=== PATIENT | female | born 1995 | race Caucasian/White ===

== ENCOUNTER → 2017-02-05 | Outpatient (CLI) | payer OTHER | LOC: COL.RAD 01-31 14:00 | DX: M25.572 Pain in left ankle and joints of left foot (principal); M76.72 Peroneal tendinitis, left leg; M76.822 Posterior tibial tendinitis, left leg; R22.42 Localized swelling, mass and lump, left lower limb ==

== ENCOUNTER 2018-02-08 23:41 | Emergency (ER) | payer OTHER ==
[~2018-02-08] VITALS: Ht 162.6 cm; Wt 86.4 kg
[2018-02-08] MEDS ORDERED: ADDERALL10 MG PO (23:54)
[2018-02-08] MEDS ORDERED: ALLEGRA 180MG180 MG PO (23:55)
[2018-02-08] MEDS ORDERED: MULTIPLE VITAMI1 CAP PO (23:55)
[2018-02-08] MEDS ORDERED: ZANTAC 150150 MG (23:55)
[2018-02-08] MEDS ORDERED: CALCIUM CARBON650 M2 (23:56)
[2018-02-08] MEDS ORDERED: SINGULAIR 110 MG/TAB PO (23:56)
[2018-02-08] MEDS ORDERED: OMEGA-3 1000 MG1 CAP PO (23:56)
[2018-02-08] MEDS ORDERED: PROAIR HFA0.09 MG/AC IH (23:57)
[2018-02-08] MEDS ORDERED: ZYRTEC 10MG10 MG PO (23:57)
[2018-02-08] MEDS ORDERED: MIRENA52 MG IY (23:58)
[2018-02-08] MEDS ORDERED: QVAR0.04 MG/AC IH (23:58)
[2018-02-09 01:00] LABS: BASO % 0.3 % (0.0-2.0); GRAN # 6.7 (1.4-6.5); GRAN % 71.9 % (42.2-75.2); HEMOGLOBIN 11.9 g/dl (12.5-16.0); LYMPH # 1.6 (1.2-3.4); LYMPH % 17.2 % (20.0-51.0); MEAN CELL VOLUME 85 fl (80.0-100.0); MEAN CORPUSCULAR HEMOGLOBIN 28 pg (27.0-31.0); MEAN CORPUSCULAR HGB CONC 33 g/dl (33.0-37.0); MEAN PLATELET VOLUME 10.2 fl (7.4-10.4); MONO # 0.9 (0.1-0.6); MONO % 9.6 % (1.7-9.3); PLATELET COUNT 207 K/mm3 (130-400); RED BLOOD COUNT 4.24 M/mm3 (4.10-5.30); REDCELL DISTRIBUTION WIDTH-CV 13.3 % (11.5-14.5)
[2018-02-09 01:08] LABS: ALBUMIN 3.5 gm/dL (3.5-5.0); BILIRUBIN,TOTAL 0.4 mg/dL (0.0-1.0); C-REACTIVE PROTEIN 8.5 mg/dL (0.0-0.9); CALCIUM 8.3 mg/dL (8.4-10.2); CREATININE, serum 0.69 mg/dL (0.52-1.25); POTASSIUM 3.5 mmol/L (3.4-5.0); TOTAL PROTEIN 7.1 gm/dL (6.4-8.2)
[2018-02-09 01:19] VITALS: TEMP 99.5
[2018-02-09 01:35] LABS: COLLECTION METHOD CLEAN CATCH
[2018-02-09 01:52] LABS: PH 6 (5-8); SQUAMOUS EPITHELIAL 0-2 /hpf; URINE APPEARANCE Clear; URINE BACTERIA Moderate /hpf; URINE BILIRUBIN Negative (NEGATIVE); URINE BLOOD 1+ (NEGATIVE); URINE COLOR Yellow; URINE GLUCOSE Negative (NEGATIVE); URINE KETONE 1+ (NEGATIVE); URINE LEUKOCYTE ESTERASE Negative (NEGATIVE); URINE NITRATE Positive (NEGATIVE); URINE PROTEIN(semi-quant) Negative (NEGATIVE); URINE RBC 0-2 /hpf
[2018-02-09] MEDS ORDERED: VALTREX1 GM PO (02:07)
[2018-02-09] MEDS ORDERED: CEFTIN500 MG PO (02:07)
[2018-02-09 02:56] VITALS: BP 130/75; PULSE 103
[2018-02-09] MEDS ORDERED: NORCO 325 MG-51 TAB PO (20:17)
== END 2018-02-09 02:56 | disposition home or self-care (01) ==
LOC: COL.ER 23:41
PROVIDERS: Emergency Medicine
DX: N39.0 Urinary tract infection, site not specified (principal); B00.9 Herpesviral infection, unspecified; J45.909 Unspecified asthma, uncomplicated; F98.8 Other specified behavioral and emotional disorders with onset usually occurring in childhood and adolescence; K21.9 Gastro-esophageal reflux disease without esophagitis
CPT/HCPCS: J0696; J1885; J2405; J7030

== ENCOUNTER 2018-02-09 19:34 | Emergency (ER) | payer OTHER ==
[~2018-02-09 19:34] MED LIST: ADDERALL10 MG PO; ALLEGRA 180MG180 MG PO; CALCIUM CARBON650 M2; CEFTIN500 MG PO; MIRENA52 MG IY; MULTIPLE VITAMI1 CAP PO; OMEGA-3 1000 MG1 CAP PO; PROAIR HFA0.09 MG/AC IH; QVAR0.04 MG/AC IH; SINGULAIR 110 MG/TAB PO; VALTREX1 GM PO; ZANTAC 150150 MG; ZYRTEC 10MG10 MG PO
[2018-02-09 19:37] VITALS: TEMP 98.6
[2018-02-09] MEDS ORDERED: NORCO 325 MG-51 TAB PO (20:17)
[2018-02-09 20:33] VITALS: BP 125/72; PULSE 112
== END 2018-02-09 20:45 | disposition home or self-care (01) ==
LOC: COL.ER 19:34
DX: R10.2 Pelvic and perineal pain (principal); Z79.51 Long term (current) use of inhaled steroids

== ENCOUNTER → 2019-12-20 | Outpatient (CLI) | payer BC ==
[~2019-12-20] MED LIST changes: +NORCO 325 MG-51 TAB PO
== END ==
LOC: COL.RAD 14:11
DX: H04.319 Phlegmonous dacryocystitis of unspecified lacrimal passage (principal)

== ENCOUNTER 2020-06-09 12:25 | Emergency (ER) | payer BC ==
[~2020-06-09] VITALS: Ht 162.6 cm; Wt 95.5 kg
[2020-06-09 12:31] VITALS: TEMP 98
[2020-06-09 14:09] LABS: BASO # 0.1 (0.0-0.2); BASO % 0.7 % (0.0-2.0); EOS # 0.3 (0.0-0.7); EOS % 1.8 % (0-4.0); GRAN # 9.2 (1.4-6.5); GRAN % 58.6 % (42.2-75.2); HEMATOCRIT 43.4 % (37.0-47.0); HEMOGLOBIN 14.4 g/dl (12.5-16.0); LYMPH % 31.5 % (20.0-51.0); MEAN CELL VOLUME 86 fl (80.0-100.0); MEAN CORPUSCULAR HEMOGLOBIN 29 pg (27.0-31.0); MEAN CORPUSCULAR HGB CONC 33 g/dl (33.0-37.0); MEAN PLATELET VOLUME 10.3 fl (7.4-10.4); MONO # 1.1 (0.1-0.6); MONO % 6.9 % (1.7-9.3); PLATELET COUNT 321 K/mm3 (130-400); RED BLOOD COUNT 5.03 M/mm3 (4.10-5.30); REDCELL DISTRIBUTION WIDTH-CV 13.5 % (11.5-14.5)
[2020-06-09] MEDS ORDERED: MILLIPRED DP5 MG PO (14:32)
[2020-06-09 16:31] VITALS: BP 115/74; PULSE 79
== END 2020-06-09 16:32 | disposition home or self-care (01) ==
LOC: COL.ER 12:25
PROVIDERS: Emergency Medicine
DX: R06.02 Shortness of breath (principal)